=== PATIENT | female | born 1955 | race American Indian/Alaskan Native ===

== ENCOUNTER 2019-01-08 16:56 | Emergency (ER) | payer SELFPAY ==
--- NOTE | 2019-01-08 17:23 | Event Note ---
ED Screening Note Date of service: 01/08/19 Time: 17:21 ED Screening Note: This is 63 y.o. F. that presents to the ER with elevated blood pressure. Moved here from [place] and have an appointment with a new PCP January 21, 2019. She ran out of medication 2 days. PMH HTN Denies chest pain, dizziness, visual changes, or palpitations. This initial assessment/diagnostic orders/clinical plan/treatment(s) is/are subject to change based on patients health status, clinical progression and re-assessment by fellow clinical providers in the ED. Further treatment and workup at subsequent clinical providers discretion. Patient/guardian urged not to elope from the ED as their condition may be serious if not clinically assessed and managed. Initial orders include: ACC for further evaluation.
--- NOTE | 2019-01-08 18:12 | Emergency Department Report ---
ED Recheck HPI - General Chief Complaint: High BP Stated Complaint: MEDICATION REFILL Time Seen by Provider: 01/08/19 17:20 Source: patient Mode of arrival: Ambulatory Limitations: No Limitations - History of Present Illness Initial Comments: Patient is a 63-year-old female who presents the emergency room for a medication refill. She has a history of high blood pressure and takes hydrochlorothiazide 25 mg once daily, clonidine 0.1 mg twice a day, candesartan 32 mg once daily. She states she just moved from [place] 2 weeks ago. States she has not taken her medication in 2 days. Denies any symptoms at all. She denies any chest pain, headache, shortness of breath, vision changes, numbness, weakness. She states has an appointment with her new primary care doctor on 01/21/19. - Related Data Previous Rx's Medication Instructions Recorded Last Taken Type Candesartan (Nf) [Atacand (Nf)] 32 mg PO DAILY #60 tablet 01/08/19 Unknown Rx cloNIDine [Catapres] 0.1 mg PO BID #120 tablet 01/08/19 Unknown Rx hydroCHLOROthiazide [HCTZ] 25 mg PO QDAY #60 tablet 01/08/19 Unknown Rx Allergies Allergy/AdvReac Type Severity Reaction Status Date / Time No Known Allergies Allergy Unverified 01/08/19 16:57 ED Review of Systems ROS: Stated complaint: MEDICATION REFILL Other details as noted in HPI Comment: All other systems reviewed and negative ED Past Medical Hx - Past Medical History Previous Medical History?: Yes Hx Hypertension: Yes - Surgical History Past Surgical History?: No - Social History Smoking Status: Never Smoker Substance Use Type: None - Medications Home Medications: Home Medications Medication Instructions Recorded Confirmed Last Taken Type Candesartan (Nf) [Atacand (Nf)] 32 mg PO DAILY #60 tablet 01/08/19 Unknown Rx cloNIDine [Catapres] 0.1 mg PO BID #120 tablet 01/08/19 Unknown Rx hydroCHLOROthiazide [HCTZ] 25 mg PO QDAY #60 tablet 01/08/19 Unknown Rx ED Physical Exam - General Limitations: No Limitations General appearance: alert, in no apparent distress - Head Head exam: Present: atraumatic, normocephalic - Eye Eye exam: Present: normal appearance, PERRL, EOMI - ENT ENT exam: Present: mucous membranes moist - Respiratory Respiratory exam: Present: normal lung sounds bilaterally. Absent: respiratory distress, wheezes, rales, rhonchi, stridor, chest wall tenderness, accessory muscle use, decreased breath sounds, prolonged expiratory - Cardiovascular Cardiovascular Exam: Present: regular rate, normal rhythm, normal heart sounds. Absent: systolic murmur, diastolic murmur, rubs, gallop - Neurological Exam Neurological exam: Present: alert, oriented X3 - Psychiatric Psychiatric exam: Present: normal affect, normal mood - Skin Skin exam: Present: warm, dry, intact ED Course Vital Signs 01/08/19 01/08/19 17:21 18:32 Temperature 98.8 F 98.1 F Pulse Rate 82 67 Respiratory 20 16 Rate Blood Pressure 182/101 Blood Pressure 138/79 [Right] O2 Sat by Pulse 98 97 Oximetry ED Recheck MDM - Medical Decision Making Patient is a 63-year-old female who presents the emergency room for a medication refill. She has a history of high blood pressure and takes hydrochlorothiazide 25 mg once daily, clonidine 0.1 mg twice a day, candesartan 32 mg once daily. She states she just moved from [place] 2 weeks ago. States she has not taken her medication in 2 days. Denies any symptoms at all. She denies any chest pain, headache, shortness of breath, vision changes, numbness, weakness. She states has an appointment with her new primary care doctor on 01/21/19. no neuro deficits on exam. pt states that she had one pill of clonidine left and took it while in the ED. pts blood pressure improved on repeat. pt given a refill of her medications. advised to please take your medication as prescribed. Follow up with a primary care doctor in the next 2-3 days. Return to the emergency room for any new or worsening symptoms. Critical care attestation.: If time is entered above; I have spent that time in minutes in the direct care of this critically ill patient, excluding procedure time. ED Disposition Clinical Impression: Medication refill HTN (hypertension) Qualifiers: Hypertension type: unspecified Qualified Code(s): I10 - Essential (primary) hypertension Disposition: TO HOME OR SELFCARE Is pt being admited?: No Does the pt Need Aspirin: No Condition: Stable Instructions: Hypertension (ED) Additional Instructions: Please take your medication as prescribed. Follow up with a primary care doctor in the next 2-3 days. Return to the emergency room for any new or worsening symptoms. Prescriptions: Candesartan (Nf) [Atacand (Nf)] 32 mg PO DAILY #60 tablet cloNIDine [Catapres] 0.1 mg PO BID #120 tablet hydroCHLOROthiazide [HCTZ] 25 mg PO QDAY #60 tablet Referrals: [facility] [Provider Group] - 2-3 Days Time of Disposition: 18:10 Print Language: HUNGARIAN
[2019-01-08 18:33] VITALS: BP 138/79
== END 2019-01-08 18:32 | disposition home or self-care (01) ==
LOC: ED 16:56
DX: I10 Essential (primary) hypertension (principal); Z76.0 Encounter for issue of repeat prescription; Z79.899 Other long term (current) drug therapy
CPT/HCPCS: 99282

== ENCOUNTER 2019-02-02 17:01 | Emergency (ER) | payer SELFPAY ==
[2019-02-02] MEDS ORDERED: IBUPROFEN PO ONE (19:02)
--- NOTE | 2019-02-02 19:05 | Emergency Department Report ---
Minor Respiratory - HPI Chief Complaint: Dental/Oral Stated Complaint: TONGUE PAIN Time Seen by Provider: 02/02/19 18:43 Duration: 5 Days Pain Location: Other Minor Respiratory: Yes Able to Tolerate Fluids, Yes Fever (MILD), No Rhinorrhea, No Sore Throat, No Ear Pain, No Cough, No Sick Contacts, No Hemoptysis, No Chest Pain, No Shortness of Breath Other History: 63 YO COMES WITH "TONGUE PAIN" ACTUALLY PAIN FROM LOWER LEFT MOLAR AND GINGIVITIS WHICH SHE SAYS SHE HAS HAD BEFORE. NO LUDWIGS. NO ABSCESS. ABC INTACT. NO TRISMUS. CONTROLLING SECRETIONS. PMH. HTN. RX. 3 BP MEDS CANT RECALL NAME. ED Review of Systems ROS: Stated complaint: TONGUE PAIN Other details as noted in HPI Comment: All other systems reviewed and negative ED Past Medical Hx - Past Medical History Previous Medical History?: Yes Hx Hypertension: Yes - Surgical History Past Surgical History?: No - Social History Smoking Status: Never Smoker Substance Use Type: None - Medications Home Medications: Home Medications Medication Instructions Recorded Confirmed Last Taken Type Candesartan (Nf) [Atacand (Nf)] 32 mg PO DAILY #60 tablet 01/08/19 Unknown Rx cloNIDine [Catapres] 0.1 mg PO BID #120 tablet 01/08/19 Unknown Rx hydroCHLOROthiazide [HCTZ] 25 mg PO QDAY #60 tablet 01/08/19 Unknown Rx Amoxicillin [Trimox CAP] 500 mg PO BID #20 capsule 02/02/19 Unknown Rx Ibuprofen [Motrin] 800 mg PO Q8HR PRN #20 tablet 02/02/19 Unknown Rx Minor Respiratory Exam - Exam General: Vital signs noted. No distress. Alert and acting appropriately. LOWER LEFT MOLAR CARIES AND GINGIVITIS; TOOTH NO 17/18 HEENT: Yes Moist Mucous Membranes, No Pharyngeal Erythema, No Pharyngeal Exudates, No Rhinorrhea Ear: Neither TM Bulge, Neither TM Erythema, Neither EAC Pain, Neither EAC Discharge Neck: Yes Supple, No Adenopathy Lungs: Yes Good Air Exchange, No Wheezes Heart: Yes Regular Abdomen: No Tenderness Skin: No Rash Neurologic: Alert and oriented, no deficits. Musculoskeletal: Unremarkable. ED Course Vital Signs 02/02/19 17:27 Temperature 100.3 F H Pulse Rate 78 Respiratory 18 Rate Blood Pressure 167/90 O2 Sat by Pulse 97 Oximetry ED Medical Decision Making - Medical Decision Making NO ABSCESS NO LUDWIGS TAKING PO VSS A/C PROBLEM NEW TO AREA MOTRIN IN ER DC HOME WITH DC PLAN OF CARE AND PCP FOLLOW UP Vital Signs 02/02/19 17:27 Temperature 100.3 F H Pulse Rate 78 Respiratory 18 Rate Blood Pressure 167/90 O2 Sat by Pulse 97 Oximetry - Differential Diagnosis SIMPLE DENTAL WO ABSCESS Critical care attestation.: If time is entered above; I have spent that time in minutes in the direct care of this critically ill patient, excluding procedure time. ED Disposition Clinical Impression: Pain, dental, Gingivitis Disposition: DC-01 TO HOME OR SELFCARE Is pt being admited?: No Does the pt Need Aspirin: No Condition: Stable Instructions: Dental Caries (ED) Additional Instructions: MEDS ORDERED TODAY FOLLOW UP DENTIST LANDY SEE REFERRALS BELOW Referrals: [facility] [Outside] - 3-5 Days [facility] [Outside] - 3-5 Days Time of Disposition: 19:03
[2019-02-02] MEDS ORDERED: TRIMOX PO ONE (19:06)
[2019-02-02 19:43] VITALS: BP 162/89
== END 2019-02-02 19:33 | disposition home or self-care (01) ==
LOC: ED 17:01
DX: K08.89 Other specified disorders of teeth and supporting structures (principal); K05.00 Acute gingivitis, plaque induced; I10 Essential (primary) hypertension; Z79.899 Other long term (current) drug therapy
CPT/HCPCS: 99281

== ENCOUNTER 2019-04-21 12:05 | Emergency (ER) | payer SELFPAY ==
--- NOTE | 2019-04-21 12:15 | Emergency Department Report ---
Blank Doc - Documentation Documentation: 63-year-old female that presents with headache and uncontrolled HTN. This initial assessment/diagnostic orders/clinical plan/treatment(s) is/are subject to change based on patient's health status, clinical progression and re- assessment by fellow clinical providers in the ED. Further treatment and workup at subsequent clinical providers discretion. Patient/guardians urged not to elope from the ED as their condition may be serious if not clinically assessed and managed. Initial orders include: 1- Patient sent to ACC for further evaluation and treatment 2- CT head 3- labs
[2019-04-21] MEDS ORDERED: cloNIDine 0.2 MG TAB PO ONE (12:22)
[2019-04-21 13:10] LABS: Basophils # (Auto) 0.1 K/mm3 (0.0-0.1); Basophils % (Auto) 1.4 % (0.0-1.8); Eosinophils # (Auto) 0.2 K/mm3 (0.0-0.4); Eosinophils % (Auto) 2.7 % (0.0-4.3); Hematocrit 41.1 % (30.3-42.9); Hemoglobin 13.6 gm/dl (10.1-14.3); Lymphocytes # (Auto) 2.3 K/mm3 (1.2-5.4); Lymphocytes % (Auto) 33.3 % (13.4-35.0); Mean Corpuscular HGB Conc 33 % (30-34); Mean Corpuscular Volume 87 fl (79-97); Monocytes # (Auto) 0.4 K/mm3 (0.0-0.8); Platelet Count 272 K/mm3 (140-440); Red Blood Count 4.74 M/mm3 (3.65-5.03); Red Cell Distribution Width 17.1 % (13.2-15.2)
[2019-04-21 13:36] LABS: BUN/Creatinine Ratio 11; Blood Urea Nitrogen 12 mg/dL (7-17); Calcium 9.8 mg/dL (8.4-10.2); Hemolysis Index 12
[2019-04-21 14:05] VITALS: BP 163/97
--- NOTE | 2019-04-21 14:25 | Emergency Department Report ---
ED General Adult HPI - General Chief complaint: Headache Stated complaint: HEADACHES Time Seen by Provider: 04/21/19 12:13 Source: patient Mode of arrival: Ambulatory Limitations: No Limitations - History of Present Illness Initial comments: Patient is a 63-year-old female who is complaining of a headache. Patient states she has been out of her blood pressure medications for the past 3 days. Patient's only complaint is a mild headache of his aching and throbbing. She has some mild blurry vision. Patient denies nausea vomiting fe vers chills cough, congestion and chest pain shortness of breath or focal neurological deficits. - Related Data Previous Rx's Medication Instructions Recorded Last Taken Type Candesartan (Nf) [Atacand (Nf)] 32 mg PO DAILY #60 tablet 01/08/19 Unknown Rx Chlorhexidine Mouthwash [Peridex] 15 ml MM BID #1 bottle 02/26/19 Unknown Rx Clindamycin [Clindamycin CAP] 300 mg PO Q8H #30 cap 02/26/19 Unknown Rx Ibuprofen [Motrin 800 MG tab] 800 mg PO Q8HR PRN #20 tablet 02/26/19 Unknown Rx Amoxicillin [Trimox CAP] 500 mg PO TID #21 capsule 03/04/19 Unknown Rx Lisinopril [Zestril TAB] 20 mg PO QDAY #30 tablet 04/21/19 Unknown Rx cloNIDine [Catapres] 0.1 mg PO BID #60 tablet 04/21/19 Unknown Rx hydroCHLOROthiazide [HCTZ] 25 mg PO QDAY #60 tablet 04/21/19 Unknown Rx Allergies Allergy/AdvReac Type Severity Reaction Status Date / Time No Known Allergies Allergy Unverified 01/08/19 16:57 ED Review of Systems ROS: Stated complaint: HEADACHES Other details as noted in HPI Comment: All other systems reviewed and negative ED Past Medical Hx - Past Medical History Previous Medical History?: Yes Hx Hypertension: Yes - Surgical History Past Surgical History?: No - Social History Smoking Status: Never Smoker Substance Use Type: None - Medications Home Medications: Home Medications Medication Instructions Recorded Confirmed Last Taken Type Candesartan (Nf) [Atacand (Nf)] 32 mg PO DAILY #60 tablet 01/08/19 Unknown Rx Chlorhexidine Mouthwash [Peridex] 15 ml MM BID #1 bottle 02/26/19 Unknown Rx Clindamycin [Clindamycin CAP] 300 mg PO Q8H #30 cap 02/26/19 Unknown Rx Ibuprofen [Motrin 800 MG tab] 800 mg PO Q8HR PRN #20 tablet 02/26/19 Unknown Rx Amoxicillin [Trimox CAP] 500 mg PO TID #21 capsule 03/04/19 Unknown Rx Lisinopril [Zestril TAB] 20 mg PO QDAY #30 tablet 04/21/19 Unknown Rx cloNIDine [Catapres] 0.1 mg PO BID #60 tablet 04/21/19 Unknown Rx hydroCHLOROthiazide [HCTZ] 25 mg PO QDAY #60 tablet 04/21/19 Unknown Rx ED Physical Exam - General Limitations: No Limitations General appearance: alert, in no apparent distress - Head Head exam: Present: atraumatic, normocephalic - Eye Eye exam: Present: normal appearance Pupils: Present: other (unable to do fundoscopic exam) - ENT ENT exam: Present: normal exam, mucous membranes moist - Neck Neck exam: Present: normal inspection - Respiratory Respiratory exam: Present: normal lung sounds bilaterally. Absent: respiratory distress, wheezes, rales, rhonchi - Cardiovascular Cardiovascular Exam: Present: regular rate, normal rhythm, normal heart sounds. Absent: systolic murmur, diastolic murmur, rubs, gallop - GI/Abdominal GI/Abdominal exam: Present: soft, normal bowel sounds. Absent: distended, tenderness, guarding, rebound - Extremities Exam Extremities exam: Present: normal inspection - Back Exam Back exam: Present: normal inspection - Neurological Exam Neurological exam: Present: alert, oriented X3 - Psychiatric Psychiatric exam: Present: normal affect, normal mood - Skin Skin exam: Present: warm, dry, intact, normal color. Absent: rash ED Course Vital Signs 04/21/19 04/21/19 04/21/19 12:16 12:39 14:02 Temperature 98.9 F Pulse Rate 88 88 71 Respiratory 18 Rate Blood Pressure 224/134 224/134 163/97 O2 Sat by Pulse 97 96 Oximetry 04/21/19 14:05 Temperature 98.5 F Pulse Rate Respiratory 13 Rate Blood Pressure O2 Sat by Pulse Oximetry ED Medical Decision Making - Lab Data Result diagrams: 04/21/19 12:40 04/21/19 12:40 - Radiology Data Radiology results: image reviewed (no acute hemorrhage seen on CT) - Medical Decision Making She is on clonidine and has missed 3 days worth of doses. Patient likely with rebound hypertension. Patient will be restarted on her blood pressure medications and discharged home. Critical care attestation.: If time is entered above; I have spent that time in minutes in the direct care of this critically ill patient, excluding procedure time. ED Disposition Clinical Impression: Hypertensive urgency, malignant Disposition: DC-01 TO HOME OR SELFCARE Is pt being admited?: No Does the pt Need Aspirin: No Condition: Stable Instructions: Chronic Hypertension (ED), Hypertension (ED) Prescriptions: cloNIDine [Catapres] 0.1 mg PO BID #60 tablet hydroCHLOROthiazide [HCTZ] 25 mg PO QDAY #60 tablet Lisinopril [Zestril TAB] 20 mg PO QDAY #30 tablet Referrals: VALERI DEY MD [Referring] - 3-5 Days Time of Disposition: 14:25
--- NOTE | 2019-04-21 14:41 | Cat Scan Report ---
CT head/brain wo con INDICATION / CLINICAL INFORMATION: 63 years Female; headache. TECHNIQUE: Routine CT head without contrast. All CT scans at this location are performed using CT dos e reduction for ALARA by means of automated exposure control. COMPARISON: None. FINDINGS: BRAIN / INTRACRANIAL CONTENTS: The motion and positioning degrade the image quality. However, there i s extensive cerebral white matter disease most consistent with microvascular angiopathy. The findings include the right ganglia capsular region. There are small foci of calcification within the left bas al ganglia. There is no clear CT evidence of acute intracranial hemorrhage or significant mass effect . ORBITS: No significant abnormality of visualized orbits. SINUSES / MASTOIDS: No significant abnormality the visualized paranasal sinuses or mastoid air cells. CRANIOCERVICAL JUNCTION: No significant abnormality. ADDITIONAL FINDINGS: None. IMPRESSION: 1. There is extensive microvascular angiopathy as described without CT evidence of acute intercranial hemorrhage. Signer Name: Kamran Michel MD Signed: 04/21/2019 2:37 PM Workstation Name: [id number]
== END 2019-04-21 14:46 | disposition home or self-care (01) ==
LOC: ED 12:05
DX: I16.0 Hypertensive urgency (principal); I10 Essential (primary) hypertension
CPT/HCPCS: 36415; 70450; 80048; 85025

== ENCOUNTER 2019-07-09 06:44 | Emergency (ER) | payer SELFPAY ==
--- NOTE | 2019-07-09 10:08 | Emergency Department Report ---
HPI - General Chief Complaint: Recheck/Abnormal Lab/Rx Time Seen by Provider: 07/09/19 09:56 - HPI HPI: Room 43 The patient is a 63-year-old female presenting with a chief complaint of hypertension/medication refill. The patient says she ran out of her blood pressure medication 3 days ago so she knows her blood pressure is high. Patient denies symptoms. Patient denies any complaints. ED Past Medical Hx - Past Medical History Hx Hypertension: Yes - Surgical History Past Surgical History?: No - Family History Family history: no significant - Social History Smoking Status: Never Smoker Substance Use Type: None - Medications Home Medications: Home Medications Medication Instructions Recorded Confirmed Last Taken Type Chlorhexidine Mouthwash [Peridex] 15 ml MM BID #1 bottle 02/26/19 Unknown Rx Clindamycin [Clindamycin CAP] 300 mg PO Q8H #30 cap 02/26/19 Unknown Rx Amoxicillin [Trimox CAP] 500 mg PO TID #21 capsule 03/04/19 Unknown Rx lisinopriL [Zestril TAB] 20 mg PO QDAY #30 tablet 04/21/19 Unknown Rx Candesartan (Nf) [Atacand (Nf)] 32 mg PO DAILY #60 tablet 07/09/19 Unknown Rx Ibuprofen [Motrin 800 MG tab] 800 mg PO Q8HR PRN #20 tablet 07/09/19 Unknown Rx cloNIDine [Catapres] 0.1 mg PO BID #60 tablet 07/09/19 Unknown Rx hydroCHLOROthiazide [HCTZ] 25 mg PO QDAY #60 tablet 07/09/19 Unknown Rx ED Review of Systems ROS: Stated complaint: BLOOD PRESSURE CHECK/MED REFILL` Other details as noted in HPI Constitutional: no symptoms reported Eyes: denies: eye pain ENT: denies: ear pain Respiratory: no symptoms reported Cardiovascular: denies: chest pain Endocrine: no symptoms reported Gastrointestinal: denies: abdominal pain Genitourinary: denies: dysuria Musculoskeletal: denies: back pain Neurological: denies: headache Physical Exam - Physical Exam Vital Signs: Vital Signs 07/09/19 07:26 Temperature 99.4 F Pulse Rate 80 Respiratory 20 Rate Blood Pressure 170/100 O2 Sat by Pulse 96 Oximetry Physical Exam: GENERAL: The patient is well-developed well-nourished female sitting in chair not appearing to be in acute distress. [] HEENT: Normocephalic. Atraumatic. Extraocular motions are intact. Patient has moist mucous membranes. NECK: Supple. Trachea midline CHEST/LUNGS: There is no respiratory distress noted. HEART/CARDIOVASCULAR: Regular. There is no tachycardia. There is no gallop rub or murmur. ABDOMEN: Abdomen is soft, nontender. Patient has normal bowel sounds. There is no abdominal distention. SKIN: There is no rash. There is no edema. There is no diaphoresis. NEURO: The patient is awake, alert, and oriented. The patient is cooperative. The patient has no focal neurologic deficits. The patient has normal speech. Cranial nerves II through XII grossly intact, no drift MUSCULOSKELETAL: There is no evidence of acute injury. ED Course Vital Signs 07/09/19 07:26 Temperature 99.4 F Pulse Rate 80 Respiratory 20 Rate Blood Pressure 170/100 O2 Sat by Pulse 96 Oximetry ED Medical Decision Making - Differential Diagnosis hypertension Critical care attestation.: If time is entered above; I have spent that time in minutes in the direct care of this critically ill patient, excluding procedure time. ED Disposition Clinical Impression: Hypertension, Encounter for medication refill Disposition: DC-01 TO HOME OR SELFCARE Is pt being admited?: No Does the pt Need Aspirin: No Condition: Stable Instructions: Hypertension (ED) Additional Instructions: Return to the emergency department should you develop worsening symptoms, inability to tolerate food or liquids, high fever or any other concerns Prescriptions: Candesartan (Nf) [Atacand (Nf)] 32 mg PO DAILY #60 tablet cloNIDine [Catapres] 0.1 mg PO BID #60 tablet hydroCHLOROthiazide [HCTZ] 25 mg PO QDAY #60 tablet Ibuprofen [Motrin 800 MG tab] 800 mg PO Q8HR PRN #20 tablet PRN Reason: Pain, Mild (1-3) Referrals: RANDA DAVILA MD [Staff Physician] - 3-5 Days [facility] [Outside] - 3-5 Days Time of Disposition: 10:08
[2019-07-09 10:14] VITALS: BP 170/102
[2019-07-09] MEDS ORDERED: IBUPROFEN 800 MG TAB PO ONE (10:15)
[2019-07-09] MEDS ORDERED: cloNIDine 0.2 MG TAB PO ONE (10:15)
== END 2019-07-09 10:30 | disposition home or self-care (01) ==
LOC: ED 06:44
DX: I10 Essential (primary) hypertension (principal); Z76.0 Encounter for issue of repeat prescription
CPT/HCPCS: 99282